=== PATIENT | female | born 1940 | race Caucasian/White ===

== ENCOUNTER 2020-06-14 16:47 | Emergency (ER) | payer OTHER ==
[~2020-06-14] VITALS: Ht 154.9 cm; Wt 90.7 kg
== END 2020-06-14 18:57 | disposition home or self-care (01) ==
LOC: ER 17:40
DX: T78.40XA Allergy, unspecified, initial encounter (principal); I10 Essential (primary) hypertension; G20 Parkinson's disease; Z85.89 Personal history of malignant neoplasm of other organs and systems
CPT/HCPCS: 99282